=== PATIENT | female | born 1980 | race Caucasian/White ===

== ENCOUNTER → 2019-03-21 12:41 | Outpatient (CLI) | payer MEDICAID, SELFPAY ==
--- NOTE | 2019-03-21 13:58 | NEURO ---
NCS and/or EMG Patient Report Ordering Doctor: Mayra Esparza DATE OF SERVICE: 03/21/19 Gertrude Newberry is a 38-year-old female presents for electrodiagnostic testing of the upper limbs. She reports numbness and tingling in both hands with associated weakness. Electrodiagnostic findings: Median motor nerve demonstrates prolonged distal latency bilaterally with normal amplitude and conduction velocity. Normal ulnar motor response bilaterally, including conduction across the elbow. Normal median and ulnar F waves. Prolonged median sensory latency at the wrist bilaterally. Needle EMG testing showed no evidence of denervation in any muscles tested. Motor unit action potentials are of normal amplitude and duration. Electrodiagnostic impression: This is an abnormal study in the upper limbs. 1. Electrodiagnostic findings demonstrate bilateral median mononeuropathy. This is consistent with a mild bilateral carpal tunnel syndrome. If there are any further questions, please do not hesitate to contact me
== END ==
PROVIDERS: Family Provider Physician Assistant Medical; PCP Physician Assistant Medical; Referring Provider Physician Assistant Medical; Visit Provider Physician Assistant Medical
DX: R20.0 Anesthesia of skin (principal)
CPT/HCPCS: 95886; 95912